=== PATIENT | male | born 1960 ===

== ENCOUNTER 2021-04-06 08:53 | Outpatient (CLI) | payer OTHER | END 2021-04-06 08:59 | disposition home or self-care (01) | LOC: RAD 08:53 | DX: R26.2 Difficulty in walking, not elsewhere classified (principal); M48.062 Spinal stenosis, lumbar region with neurogenic claudication; M43.16 Spondylolisthesis, lumbar region; M47.26 Other spondylosis with radiculopathy, lumbar region; I10 Essential (primary) hypertension; E03.9 Hypothyroidism, unspecified ==

== ENCOUNTER 2023-01-31 07:05 | Outpatient (CLI) | payer OTHER | END 2023-01-31 07:12 | disposition home or self-care (01) | LOC: RX STUDY 07:05 | DX: Z93.2 Ileostomy status (principal) ==